=== PATIENT | female | born 1985 | race Caucasian/White ===

== ENCOUNTER 2022-01-27 10:19 | Emergency (ER) | payer BC ==
[~2022-01-27] VITALS: Ht 154.9 cm; Wt 59.0 kg
--- NOTE | 2022-01-27 10:30 | NUR ---
patient brought in by fire department. placed in room 4B, patient states she had a medication increase recently and today when she got up had unsteady gait. waiting to be seen by ER Physician.
[2022-01-27 11:00] LABS: HEMATOCRIT 39.2 % (31.2-41.9); MEAN CORPUSCULAR HEMOGLOBIN 28.1 uug (24.7-32.8); MEAN CORPUSCULAR VOLUME 83.4 fL (75.5-95.3); PLATELET COUNT (AUTO) 331 K/uL (179-408)
[2022-01-27] MEDS ORDERED: IV NORMAL SALINE 1000 ML BAG IV ONE (11:00)
[2022-01-27 11:11] LABS: CREATININE 0.9 mg/dL (0.6-1.3); POTASSIUM 4.1 mmol/L (3.5-5.1)
[2022-01-27 11:15] LABS: BILIRUBIN,DIRECT 0.1 mg/dL (0.0-0.2); BILIRUBIN,TOTAL 0.3 mg/dL (0.2-1.0); TOTAL PROTEIN, SERUM 7.4 g/dL (6.4-8.2)
--- NOTE | 2022-01-27 12:22 | NUR ---
Gave pt d/c instructions, pt verbalized understanding.
== END 2022-01-27 12:24 | disposition home or self-care (01) ==
LOC: ER 10:19
DX: T43.221A Poisoning by selective serotonin reuptake inhibitors, accidental (unintentional), initial encounter (principal); R42 Dizziness and giddiness; Y92.89 Other specified places as the place of occurrence of the external cause; R00.0 Tachycardia, unspecified; F15.11 Other stimulant abuse, in remission; F11.11 Opioid abuse, in remission
CPT/HCPCS: 36415; 85025; 93005; A4663; J7040